=== PATIENT | male | born 1960 | race Caucasian/White ===

== ENCOUNTER 2017-12-21 08:57 | Emergency (ER) | payer BC ==
[2017-12-21] MEDS ORDERED: Sodium Chloride 0.9% 1,000 ML IV STA (09:14)
[2017-12-21] MEDS ORDERED: Sodium Chloride 0.9% 10 ML Syringe FLUSH PRN ×2 (09:14→09:28)
[2017-12-21] MEDS ORDERED: Ondansetron 4 MG/2 ML SDV IVPUSH ONE (09:14)
[2017-12-21] MEDS ORDERED: HYDROmorphone 0.5 MG/0.5 ML SYRINGE IVPUSH ONE ×2 (09:17→11:27)
[2017-12-21] MEDS ORDERED: Iopamidol 612 MG/ML 150 ML Bottle IVPUSH ONE (09:28)
[2017-12-21] MEDS ORDERED: Diatrizoate Meglumine/Diatrizoate Sodium 37% 120 ML Bottle PO ONE (09:28)
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
--- NOTE | 2017-12-21 11:27 | CT ---
CT abdomen and pelvis Technique: Multiple axial sections were obtained from above the dome of the diaphragm inferiorly through the pubic symphysis. Intravenous and oral contrast was utilized. Delayed images were obtained through the bladder. Comparison: No prior abdominal imaging. Findings: Ileostomy is seen within the right lower abdomen. Increased density is seen within the subcutaneous fat as well as a small amount of air within this area. Please correlate if ileostomy has been recently for these findings to represent postoperative change rather than infection. Diffuse fluid and dilatation is seen within the small bowel. Distal ileal loops appear normal in size. Findings presumably due to mid to distal small bowel obstruction most likely from adhesions. There is a fluid and air-filled cavity structure within the lower left abdomen extending into the midline. Surrounding inflammatory change is seen. This finding measures approximately 9.6 cm and appears to represent an abscess. Uncertain if findings represent a postop abscess or whether findings represent is a diverticular abscess as diverticuli are seen within the sigmoid colon at this level. Smaller fluid collection is seen to the right side of the pelvis measuring 3.8 cm also containing air felt compatible with an additional abscess. Small left-sided pleural effusion is seen. Mild bibasilar atelectasis is noted. Liver and spleen shows no focal parenchymal abnormality. Adrenal glands show no nodule. Pancreas is within normal limits. Aorta shows atherosclerotic change without aneurysm. Kidneys show symmetric contrast enhancement. Calcifications are seen within both kidneys most likely representing combination of vascular calcification and nonobstructing calculi. Several small incidental cortical cysts are seen within the right kidney. No retroperitoneal adenopathy is seen. Delayed images shows contrast within nondilated distal ureters and within the bladder. Bone window settings were reviewed which shows disc space narrowing as well as posterior and anterior spurring at L5-S1. Lesser degenerative change scattered within other portions of the spine. Impression: 1. 9.6 cm abscess within the left side of the pelvis extending midline. 3.8 cm additional abscess within the right side of the pelvis. As mentioned above, this could represent diverticular abscess as diverticuli are seen within the sigmoid colon next to these findings. Findings could also represent postop abscesses. 2. Dilated small bowel is seen with nondilated ileal loops. Findings presumably due to small wall obstruction from nonvisualized adhesions. Small left-sided pleural effusion with mild bibasilar atelectasis. 3. Ileostomy within the right lower abdomen. Air and inflammatory change is seen within the adjacent subcutaneous fat. As mentioned above, if patient has had recent surgery this could be postoperative change or if surgery is more remote this could represent cellulitis. 4. Other incidental findings. Diagnostic code #3
[2017-12-21] MEDS ORDERED: metroNIDAZOLE/Normal Saline 500 MG in Premix Bag 1 BAG IV ONE (11:28)
[2017-12-21] MEDS ORDERED: Levofloxacin/Dextrose 5%-Water 750 MG in Premix Bag 1 BAG IV ONE (11:29)
[2017-12-21] MEDS ORDERED: Sodium Chloride 0.9% 1,000 ML IV SCH (12:15)
== END 2017-12-21 13:03 ==
LOC: JD.ED 08:57
DX: T81.4XXA Infection following a procedure, initial encounter (principal); L02.211 Cutaneous abscess of abdominal wall; K56.609 Unspecified intestinal obstruction, unspecified as to partial versus complete obstruction; Z79.82 Long term (current) use of aspirin; Z79.899 Other long term (current) drug therapy
CPT/HCPCS: 36415; 74177; 80053; 81001; 83605; 83690; 85025; 87040; 87075; 87205; 96361; 96365; 96367; 96375; 99285; J1170; J1956; J2405; J7040; J7050; Q9963; Q9967; 99284